=== PATIENT | male | born 1985 | race Two or more races ===

== ENCOUNTER 2024-04-07 05:26 | Emergency (ER) | payer OTHER ==
[~2024-04-07] VITALS: Ht 175.3 cm; Wt 72.6 kg
--- NOTE | 2024-04-07 05:36 | PRN ---
Misceleneous Note Note Note Patient seen initially for rapid medical screening exam. Patient presents with EMS w/ AMS after taking GHB approximately 245 AM. Received 12 mg Narcan with no improvement. VS stable, protecting airway, responds to pain only, saturating well on room air. Will sign out to oncoming provider pending full evaluation. RUDY TRACEY MD Apr 07, 2024 05:36
[2024-04-07 06:06] LABS: Basophils # (auto) 0 10 ^3/uL (0-0.2); Basophils % (auto) 0.5 % (0.0-2.0); Eosinophils # (auto) 0.1 10 ^3/uL (0-0.8); Eosinophils % (auto) 1.1 % (0.0-7.0); Hematocrit 27.7 % (41.0-53.0); Hemoglobin 7.8 g/dL (13.5-17.5); Lymphocytes # (auto) 1.2 10 ^3/uL (0.4-5.4); Lymphocytes % (auto) 24.2 % (10.0-50.0); Mean Corpuscular Hemoglobin 15.7 pg (28.0-32.0); Mean Corpuscular Hgb Conc. 28.2 g/dL (32.0-36.0); Mean Corpuscular Volume 55.5 fL (80.0-100.0); Monocytes # (auto) 0.5 10 ^3/uL (0-1.3); Monocytes % (auto) 9.9 % (0.0-12.0); Neutrophils # (auto) 3.3 10 ^3/uL (1.6-8.6); Neutrophils % (auto) 64.3 % (37.0-80.0); Nucleated Red Blood Cells % 0.1 %; Platelet Count (auto) 670 10^3/uL (140-450); Red Blood Cells 4.99 10^6/uL (4.5-5.90); White Blood Cell 5.1 10^3/uL (4.4-10.8)
[2024-04-07 06:15] LABS: Alanine Aminotransferase 27 U/L (7-40); Alkaline Phosphatase 87 U/L (46-116); Anion Gap 10 (5-15); Aspartate Aminotransferase 31 U/L (13-40); BUN/Creatinine Ratio 20.5 (10.0-20.0); Blood Urea Nitrogen 16 mg/dL (9-23); Glucose 90 mg/dL (74-106); Sodium 138 mmol/L (136-145)
[2024-04-07 06:16] LABS: Albumin 4.1 g/dL (3.2-4.8); Bilirubin, Total 0.5 mg/dL (0.2-1.0); Total Protein 7.4 g/dL (5.7-8.2)
[2024-04-07 06:27] LABS: Blood Alcohol < 3.0 mg/dL (<10); Carbon Dioxide 20 mmol/L (20-31); Chloride 108 mmol/L (98-107)
[2024-04-07 06:48] LABS: Anisocytosis Slight; Giant Platelets Few; Hypochromia Marked; Large Platelets FEW; Ovalocytes FEW; Platelet Estimate Increased; Target Cell FEW
--- NOTE | 2024-04-07 06:48 | ECG ---
[facility] Test Date: 2024-04-07 Test Time: 05:29:05 Pat Name: KAREN BOWER Department: ED Room: Gender: M Industrial Painter: : 1985 Requested By: KADY JUDGE Order Number: [id number] Reading MD: Ventura Yepez Measurements Intervals [place] Rate: 59 P: 67 PA: 145 QRS: 74 QRSD: 94 T: 71 QT: 451 QTc: 447 Interpretive Statements Sinus rhythm ST elevation suggests acute pericarditis Electronically Signed On 04-09-2024 16:12:53 PST by Ventura Yepez Please click the below link to view image of tracing.
[2024-04-07 07:10] LABS: Urine Bacteria None Seen /hpf (None Seen)
--- NOTE | 2024-04-07 07:26 | ED.PDOC ---
History of Present Illness HPI Comments 39 y/o M, with a Hx of polysubstance abuse, is BIBA for c/o ALOC w/decrease responsiveness s/p substance overdose, today. Per EMS report, patient's friends called after witnessing the patient become altered following "GHB" drug use, this morning, and not responding to 8mg IN Narcan administration. On scene, patient was found breathing normally, with a SpO2 of 100% RA, and was given an additional 4mg IN Narcan to positive response. At time of assessment, patient admits to recalling on hanging out with aforementioned friends and consuming alcohol in addition to using crystal methamphetamine prior to becoming altered. Patient informs of no additional Hx, aside from Hx of former HLD and Seizure medication use, with no seizures since the age of 9. Patient denies having any chest pain, shortness of breath, vision or speech changes, or other associated symptoms or modifiers at this time. Chief Complaint: Overdose Time Seen by MD: 07:00 Reviewed Notes: Nurses Notes, Signal Worker Helper Notes, Medications, Allergies Allergies: Coded Allergies: NO KNOWN ALLERGIES (Unverified , 04/07/24) Information Source: Patient, Emergency Med Personnel Mode of Arrival: EMS Severity: Moderate Timing: Hours Duration: Minutes Prehospital treatment: 12 Lead EKG, Teacher Asst, Other (see EMS run notes ) Past Medical History PAST MEDICAL HISTORY: High Lipids, Seizures Surgical History: Denies all surgeries Family History Family History: Unknown Social History Smoker: Non-Smoker Alcohol: Occasionally Drugs: Other (crystal methamphetamine ) Constitutional: denies: chills, diaphoresis, fatigue, fever, malaise, sweats, weakness, others EENTM: denies: blurred vision, double vision, ear bleeding, ear discharge, ear drainage, ear pain, ear ringing, eye pain, eye redness, hearing loss, mouth pain, mouth swelling, nasal discharge, nose bleeding, nose congestion, nose pain, photophobia, tearing, throat pain, throat swelling, voice changes, others Respiratory: denies: cough, hemoptysis, orthopnea, SOB at rest, shortness of breath, SOB with excertion, stridor, wheezing, others Gastrointestinal: denies: abdomen distended, abdominal pain, blood streaked bowels, constipated, diarrhea, dysphagia, difficulty swallowing, hematemesis, melena, nausea, poor appetite, poor fluid intake, rectal bleeding, rectal pain, vomiting, others Genitourinary: denies: burning, dysuria, flank pain, frequency, hematuria, incontinence, penile discharge, penile sore, pain, testicle pain, testicle swelling, urgency, others Neurological: reports: others (ALOC w/decrease responsiveness); denies: dizziness, fainting, headache, left sided numbness, left sided weakness, numbness, paresthesia, pre-existing deficit, right sided numbness, right sided weakness, seizure, speech problems, tingling, tremors, weakness Musculoskeletal: denies: back pain, gout, joint pain, joint swelling, muscle pain, muscle stiffness, neck pain, others Integumetry: denies: bruises, change in color, change in hair/nails, dryness, laceration, lesions, lumps, rash, wounds, others Allergic/Immunocompromised: denies: Difficulty Healing, Frequent Infections, Hives, Itching, others Hematologic/Lymphatic: denies: anemia, blood clots, easy bleeding, easy bruising, swollen glands, others Endocrine: denies: excessive hunger, excessive sweating, excessive thirst, excessive urination, flushing, intolerance to cold, intolerance to heat, unexplained weight gain, unexplained weight loss, others Psychiatric: denies: anxiety, bipolar disorder, depression, hopeless, panic disorder, schizophrenia, sleepless, suicidal, others All Other Systems: Reviewed and Negative Physical Exam General Appearance: No Apparent Distress HEENT: Normal ENT Inspection, Pharynx Normal, TMs Normal Neck: Full Range of Motion, Non-Tender, Normal, Normal Inspection Respiratory: Chest Non-Tender, Lungs Clear, No Accessory Muscle Use, No Re spiratory Distress, Normal Breath Sounds Cardiovascular: No Edema, No JVD, No Murmur, No Gallop, Normal Peripheral Pulses, Regular Rate/Rhythm Breast Exam: Deferred Gastrointestinal: No Organomegaly, Non Tender, No Pulsatile Mass, Normal Bowel Sounds, Soft Genitalia: Deferred Pelvic: Deferred Rectal: Deferred Extremities: No calf tenderness, Normal capillary refill, No pedal edema Musculoskeletal : Apperance: Normal Neurologic: nurse discharge planner II-XII nml as Tested, Motor Weakness, Normal Affect, Normal Mood, No Sensory Deficits Cerebellar Function: Normal Reflexes: Normal Skin: Dry, Normal Color, Warm Lymphatic: No Adenopathy Was a procedure done? Was a procedure done?: No Differential Dx Considerations may include: substance overdose, EtOH intoxication, encephalopathy, electrolyte imbalance X-Ray, Labs, Meds, VS Vital Signs Date Time Temp Pulse Resp B/P (MAP) Pulse Ox O2 Delivery O2 Flow Rate FiO2 04/07/24 11:30 108 18 117/66 (83) 97 04/07/24 09:30 102 18 124/59 (80) 100 04/07/24 08:03 99 04/07/24 07:30 96 16 96 Room Air* 0 21 04/07/24 07:30 98.1 96 16 135/90 (105) 100 98.1 04/07/24 06:56 62 04/07/24 05:57 Room Air* 0 21 04/07/24 05:57 97.9 77 12 127/80 (96) 100 97.9 04/07/24 05:47 98.0 62 22 128/88 (101) 99 04/07/24 05:29 59 Lab Test 04/07/24 07:05 04/07/24 06:39 04/07/24 00:00 Range/Units Urine Color Light-yellow Yellow Urine Clarity Clear Clear Urine pH 5.0 5.0-9.0 Urine Specific [place] 1.021 1.001-1.035 Urine Protein Trace H Negative Urine Ketones 2+ H Negative Urine Blood Negative Negative /uL Urine Nitrite 2+ H Negative Urine Bilirubin Negative Negative Urine Urobilinogen Normal Negative mg/dL Urine Leukocyte Esterase 1+ Negative /uL Urine RBC 1 0 - 3 /hpf Urine WBC 21 0 - 3 /hpf Urine Squamous Epithelial Cells None seen <5 /hpf Urine Bacteria None seen None Seen /hpf Urine Mucus Few None Seen Urine Glucose Normal Normal mg/dL Urine Opiates Screen Neg NEGATIVE Urine Fentanyl Screen Neg NEGATIVE Urine Barbiturates Screen Neg NEGATIVE Urine Phencyclidine Screen Neg NEGATIVE Urine Amphetamines Screen Pos NEGATIVE Urine Benzodiazepines Screen Neg NEGATIVE Urine Cocaine Screen Neg NEGATIVE Urine Cannabinoids Screen Neg NEGATIVE Troponin I High Sensitivity < 3 L < 3 L </=54 ng/L White Blood Count 5.1 4.4-10.8 10^3/uL Red Blood Count 4.99 4.5-5.90 10^6/uL Hemoglobin 7.8 L 13.5-17.5 g/dL Hematocrit 27.7 L 41.0-53.0 % Mean Corpuscular Volume 55.5 L 80.0-100.0 fL Mean Corpuscular Hemoglobin 15.7 L 28.0-32.0 pg Mean Corpuscular Hemoglobin Concent 28.2 L 32.0-36.0 g/dL Red Cell Distribution Width 19.0 H 11.8-14.3 % Platelet Count 670 H 140-450 10^3/uL Mean Platelet Volume 8.1 6.9-10.8 fL Neutrophils (%) (Auto) 64.3 37.0-80.0 % Lymphocytes (%) (Auto) 24.2 10.0-50.0 % Monocytes (%) (Auto) 9.9 0.0-12.0 % Eosinophils (%) (Auto) 1.1 0.0-7.0 % Basophils (%) (Auto) 0.5 0.0-2.0 % Neutrophils # (Auto) 3.3 1.6-8.6 10 ^3/uL Lymphocytes # (Auto) 1.2 0.4-5.4 10 ^3/uL Monocytes # (Auto) 0.5 0-1.3 10 ^3/uL Eosinophils # (Auto) 0.1 0-0.8 10 ^3/uL Basophils # (Auto) 0 0-0.2 10 ^3/uL Nucleated Red Blood Cells 0.1 % Platelet Estimate Increased Large Platelets Few Giant Platelets Few Hypochromasia (manual) Marked Poikilocytosis (manual) Slight Anisocytosis (manual) Slight Microcytosis Marked Target Cells Few Ovalocytes Few Schistocytes Few Sodium Level 138 136-145 mmol/L Potassium Level 4.0 3.5-5.1 mmol/L Chloride Level 108 H 98-107 mmol/L Carbon Dioxide Level 20 20-31 mmol/L Anion Gap 10 5-15 Blood Urea Nitrogen 16 9-23 mg/dL Creatinine 0.78 0.700-1.30 mg/dL Glomerular Filtration Rate Calc 116 >90 mL/min BUN/Creatinine Ratio 20.5 H 10.0-20.0 Serum Glucose 90 74-106 mg/dL Calcium Level 9.0 8.7-10.4 mg/dL Total Bilirubin 0.5 0.2-1.0 mg/dL Aspartate Amino Transferase (AST) 31 13-40 U/L Alanine Aminotransferase (ALT) 27 7-40 U/L Alkaline Phosphatase 87 46-116 U/L Total Protein 7.4 5.7-8.2 g/dL Albumin 4.1 3.2-4.8 g/dL Plasma/Serum Blood Alcohol < 3.0 <10 mg/dL Current Medications Medications (Trade) Dose Ordered Sig/Rian Route Start Time Stop Time Status Last Admin Ondansetron HCl (Zofran) 4 mg ONCE ONCE IV 04/07/24 09:15 04/07/24 09:16 DC 04/07/24 09:25 Acetaminophen/ Hydrocodone Bitart (Vista 5/325MG Tab) 1 tab ONCE ONCE PO 04/07/24 11:30 04/07/24 11:31 DC 04/07/24 11:36 The urine tox is positive for methamphetamines The urine test is positive for a UTI The patient will be sent home on Cipro The patient's chemistry panel is within normal limits At this time, the patient did receive Vista for headache The patient received Zofran 4 mg IV push earlier for the nausea At this time, the patient will be picked up by his partner. The patient was alert and oriented The patient has no homicidal or suicidal ideation Images Reviewed?: Images reviewed and evaluated by me Time of 1ST Reevaluation: 07:30 Reevaluation 1ST: Unchanged Patient Education/Counseling: Diagnosis, Treatment, Prognosis, Need For Follow Up Family Education/Counseling: No Family Present Departure 1 Departure Time of Disposition: 11:54 Impression: Primary Impression: Substance abuse Disposition: 01 HOME / SELF CARE / HOMELESS Condition: Fair Discharged With: Self Critical Care Note Critical Care Time?: No Stability Stability form required: No Heart Score Heart Score: Heart Score Response (Comments) Value History N/A 0 EKG N/A 0 Age N/A 0 Risk Factors N/A 0 Troponin N/A 0 Total 0 I personally scribed for KADY JUDGE MD ([email or web address]) on 04/07/24 at 07:26. Electronically submitted by Edouard Reynoso ([email or web address]). KADY JUDGE MD Apr 07, 2024 07:26
[2024-04-07 07:30] VITALS: PULSE 96; RESP 16; TEMP 98.1; O2SAT 96
[2024-04-07 07:33] LABS: Opiate Scree,Urine Neg (NEGATIVE)
[2024-04-07 07:37] LABS: Amphetamine Screen, Urine Pos (NEGATIVE); Barbiturate Scree,Urine Neg (NEGATIVE); Benzodiazephine Screen, Urine Neg (NEGATIVE); Cannabinoid Screen, Urine Neg (NEGATIVE); Phencyclidine Screen, Urine Neg (NEGATIVE)
[2024-04-07 07:40] LABS: Urine Blood Negative /uL (Negative); Urine Clarity Clear (Clear); Urine Color Light-Yellow (Yellow); Urine Mucus FEW (None Seen); Urine Protein, UAD TRACE (Negative); Urine Specific Gravity 1.021 (1.001-1.035); Urine Urobilinogen Normal (Negative); Urine WBC 21 /hpf (0 - 3)
[2024-04-07 07:49] LABS: Cocaine Screen, Urine Neg (NEGATIVE)
[2024-04-07] MEDS: ONDANSETRON HCL 4 MG/2 ML VIAL IV ONE (09:25)
--- NOTE | 2024-04-07 09:48 | DVH ---
EXAM: CT HEAD WITHOUT CONTRAST HISTORY: ams COMPARISON: None TECHNIQUE: Axial images were obtained and reformatted in coronal and sagittal planes. All CT scans at this medical facility are performed using dose modulation techniques as appropriate t o a performed exam including the following: Automated exposure control was utilized; adjustment of th e MA and/or KV according to patient size; and use of iterative reconstruction technique. CT Dose: CTDI volume is 60.04 mGy. Dose-length product is 1183.13 mGy*cm FINDINGS: Supratentorial Region: No evidence for large acute territorial ischemia. No intracranial hemorrhage is noted. Posterior Fossa: No acute abnormality. Brainstem: Unremarkable. Sellar/Suprasellar Region: Unremarkable. Ventricles, Cisterns, Sulci: Age-appropriate. Orbits: Unremarkable. Paranasal Sinuses: Unremarkable. Mastoid Air Cells: Unremarkable. Vasculature: Unremarkable. Bones/Soft Tissues: No acute abnormality. Other: Rightward nasal septal deviation with a small right-sided nasal septal spur noted. IMPRESSION: 1. No acute intracranial process.
[2024-04-07] MEDS: HYDROcodone-ACET 5/325MG TAB PO ONE (11:36)
[2024-04-07] MEDS ORDERED: CIPR-173 PO (12:04)
--- NOTE | 2024-04-07 13:47 | DVH ---
CLINICAL INDICATION: RIGHT SHOULDER PAIN TECHNIQUE: XY R SHOULDER 2+ VIEW XRAY Comparison: None FINDINGS/IMPRESSION: : There is no evidence of acute fracture or dislocation. Soft tissues are unremarkable.
[2024-04-07 14:00] VITALS: BP 117/60; PULSE 98; RESP 18; O2SAT 97
== END 2024-04-07 14:25 | disposition home or self-care (01) ==
LOC: ER 05:26 → EDBD 05:26 → ER 14:25
DX: F15.10 Other stimulant abuse, uncomplicated (principal); F19.10 Other psychoactive substance abuse, uncomplicated; E78.5 Hyperlipidemia, unspecified; R41.82 Altered mental status, unspecified; R94.31 Abnormal electrocardiogram [ECG] [EKG]; M25.511 Pain in right shoulder; Z79.899 Other long term (current) drug therapy
CPT/HCPCS: 36415; 70450; 73030; 80053; 80307; 80320; 81001; 84484; 85025; 93005; 96374; 99285; J2405